=== PATIENT | male | born 1975 | race Caucasian/White ===

== ENCOUNTER 2016-12-13 17:51 | Emergency (ER) | payer SELFPAY ==
[~2016-12-13] VITALS: Ht 195.6 cm; Wt 122.5 kg
[2016-12-13 17:52] VITALS: BP 130/92; PULSE 97; RESP 20; TEMP 99.2; O2SAT 96
--- NOTE | 2016-12-13 18:04 | PD ---
Physical Exam Date Seen by Provider: Dec 13, 2016 Time Seen by Provider: 18:02 Narrative 40 YOWM C/O R FOOT INJURY 2 DAYS AGO. ON VACATION FROM [place] VS REVIEWED WAITING FOR BED PLACEMENT Data Data Last Documented VS Vital Signs Date Time Temp Pulse Resp B/P Pulse Ox O2 Delivery O2 Flow Rate FiO2 12/13/16 17:52 99.2 97 20 130/92 96 Room Air [facility] Supervised Visit with GRANT: Portillo Cerna Dec 13, 2016 18:04
--- NOTE | 2016-12-13 19:12 | RADRPT ---
EXAM DATE/TIME: 12/13/2016 18:17 [place] COMPARISON: No previous studies available for comparison. INDICATIONS : Foot pain post fall. MEDICAL HISTORY : None. SURGICAL HISTORY : None. ENCOUNTER: Initial ACUITY: 2 days PAIN SCORE: 10/10 LOCATION: Right lateral FINDINGS: Three view examination of the right foot demonstrates a nondisplaced fracture at the proximal aspect of the fifth proximal phalanx. No other fracture is seen. The tarsal bones appear intact. The interp halangeal and metatarsophalangeal joints are intact. The calcaneus is intact. Bony mineralization i s normal. CONCLUSION: Fifth proximal phalanx fracture. Harsh Oviedo MD on December 13, 2016 at 19:10 Board Certified Radiologist. This report was verified electronically.
[2016-12-13] MEDS ORDERED: ACETAMINOPHEN/HYDROcodone 325 MG/5 MG TAB PO ONE (21:00)
[2016-12-13] MEDS ORDERED: HYDR-3533 PO (21:03)
--- NOTE | 2016-12-13 21:03 | PD ---
HPI Chief Complaint: Injury Time Seen by Provider: 20:51 Travel History International Travel<30 days: No Contact w/Intl Traveler<30days: No Traveled to known affect area: No History of Present Illness HPI 40-year-old male complains of pain in the region of the right pinky toe. 2 days ago [place] and hyper-inverted his right foot. Since then he has had increasing pain and swelling. The pain is constant. He has been ambulatory although with severe pain. The pain is worse with palpation and ambulation. PFSH Social History Alcohol Use: Yes Tobacco Use: No Allergies-Medications (Allergen,Severity, Reaction): Coded Allergies: No Known Allergies (Unverified , 12/13/16) Reported Meds & Prescriptions Reported Meds & Active Scripts Active Lortab (Hydrocodone-Acetaminophen) 5-325 Mg Tab 1-2 Tab PO Q6H PRN Review of Systems General / Constitutional: No: Fever Cardiovascular: Positive: Chest Pain or Discomfort (as reported to PA. To me he denies chest pain) Physical Exam Narrative GENERAL: 40-year-old male no acute distress SKIN: Warm and dry. HEAD: Normocephalic. EYES: No scleral icterus. No injection or drainage. NECK: Supple, trachea midline. No JVD or lymphadenopathy. CARDIOVASCULAR: Regular rate and rhythm without murmurs, gallops, or rubs. RESPIRATORY: Breath sounds equal bilaterally. No accessory muscle use. GASTROINTESTINAL: Abdomen soft, non-tender, nondistended. MUSCULOSKELETAL: No cyanosis, or edema. Swelling and erythema about the right foot. Tenderness to palpation overlying the pinky toe. BACK: Nontender without obvious deformity. No CVA tenderness. Data Data Last Documented VS Vital Signs Date Time Temp Pulse Resp B/P Pulse Ox O2 Delivery O2 Flow Rate FiO2 12/13/16 17:52 99.2 97 20 130/92 96 Room Air Vital signs reviewed Orders Foot, Complete ([id number]) (12/13/16 18:04) Electrocardiogram (12/13/16 18:37) Boot Fracture (12/13/16 ) Acetamin-Hydrocod 325-5 Mg ([place] 5-325 (12/13/16 21:00) Brace Fracture Walker (12/13/16 ) MDM Medical Decision Making Medical Screen Exam Complete: Yes Emergency Medical Condition: Yes Differential Diagnosis Fracture, contusion, dislocation, cellulitis Narrative Course Last 24 hours Impressions Foot X-Ray 12/13/16 1804 Signed Impressions: Service Date/Time: Tuesday, December 13, 2016 18:17 - CONCLUSION: Fifth proximal phalanx fracture. Harsh Oviedo MD Leo splint applied. Hard sole shoe applied. Diagnosis Primary Impression: Toe fracture, right Qualified Code: S92.514A - Closed nondisplaced fracture of proximal phalanx of lesser toe of right foot, initial encounter Referrals: Saul Vazquez DPM 2 days [employer] 2 days Additional Instructions: You have a choice when it comes to health care, and we are glad that you chose [facility]. Hopefully, we have met your expectations on today's visit. You are welcome to return to [facility] at any time, as we are committed to meeting the health care needs of our community. Med/Other Pt SpecificInfo: Prescription(s) given Scripts Hydrocodone-Acetaminophen (Lortab)5-325 Mg Tab1-2 Tab PO Q6H PRN (PAIN SCALE 6 TO 10) #20 TAB Ref 0 Prov:Orestes Kilpatrick MD 12/13/16 Disposition: 01 DISCHARGE HOME Condition: Stable Orestes Kilpatrick MD Dec 13, 2016 21:03
--- NOTE | 2016-12-14 09:11 | EKG ---
Date Performed: 12/13/2016 Time Performed: 18:44:53 PTAGE: 40 years EKG: Sinus rhythm NORMAL ECG NO PREVIOUS TRACING DOCTOR: Dieter Sutton Interpretating Date/Time 12/14/2016 09:03:01
== END 2016-12-13 21:43 | disposition home or self-care (01) ==
LOC: NEPD 17:51
DX: S92.514A Nondisplaced fracture of proximal phalanx of right lesser toe(s), initial encounter for closed fracture (principal); X58.XXXA Exposure to other specified factors, initial encounter
CPT/HCPCS: 73630; 93005; 99284; L2114